=== PATIENT | male | born 1940 | race Caucasian/White ===

== ENCOUNTER → 2024-09-25 | Outpatient (CLI) | payer MEDICARE, SELFPAY ==
--- NOTE | 2024-09-25 17:06 | RAD_ITS ---
STUDY: X-RAY - LUMBAR SPINE REASON FOR EXAM: Male, 84 years old. LUMBAR RADIOLOPATHY HX PROSTATE CANCER TECHNIQUE: 3 view(s) of the lumbar spine were obtained. COMPARISON: None FINDINGS: Normal lumbar lordosis. There is no substantial scoliosis. Slight anterior subluxation L4-5. There is multilevel endplate spondylosis of the lumbar vertebrae. There is multi-level degenerative disc disease with multi-level disc space narrowing. Sclerosis left sacral ala. Bilateral total hip arthroplasties. The soft tissue structures are unremarkable. RAD/Lumbar Spine 2 or 3 Views IMPRESSION: Sclerosis left sacral ala. CT scan would be more sensitive to exclude osteoblastic/metastatic disease. Spondylolisthesis L4-5. Spondylosis and degenerative disc disease. Electronically Signed: Moustapha Messer MD at 0:00 EST ,
== END | disposition home or self-care (01) ==
PROVIDERS: PCP Internal Medicine; Referring Provider Anesthesiology; Visit Provider Anesthesiology
DX: M54.16 Radiculopathy, lumbar region (principal); Z85.46 Personal history of malignant neoplasm of prostate
CPT/HCPCS: 72100

== ENCOUNTER → 2024-10-01 | Outpatient (CLI) | payer MEDICARE, SELFPAY ==
--- NOTE | 2024-10-01 09:03 | MRI_ITS ---
EXAM: MR LUMBAR SPINE WITHOUT INTRAVENOUS CONTRAST CLINICAL INDICATION: RADICULOPATHY, HX PROSTATE CA TECHNIQUE: Multiplanar and multisequence MR images of the lumbar spine without intravenous contrast. COMPARISON: No relevant prior studies available. FINDINGS: VERTEBRAE: Multiple vertebral body lesions are seen within the spine on the patient accounts coordinator view mainly involving the T1, T2, T3, T4, T5, L1 and L2 vertebral bodies consistent with metastatic disease. Additional involvement of the pedicles of L1 and right pedicle of L2. No acute pathologic fracture. There is mild superior endplate deformity of the L2 vertebral body resulting in minimal loss in vertebral body height. No associated edema to suggest an acute fracture. SPINAL CORD: Normal. Normal position and signal intensity of the conus medullaris. SOFT TISSUES: Normal. DISCS/SPINAL CANAL/NEURAL FORAMINA: L1-L2: Moderate disc space narrowing. Broad-based disc protrusion and posterior ligamentous redundancy results in mild spinal stenosis. No significant narrowing of the neural foramina. L2-L3: Prominent disc space narrowing. Asymmetric disc osteophyte complex and ligamentous redundancy results in mild spinal stenosis and significant narrowing of the right lateral recess. Marked bilateral neural foraminal stenosis related to the disc changes and facet arthropathy. L3-L4: Prominent disc space narrowing. Broad-based disc osteophyte complex, marked ligamentous hypertrophy and facet arthropathy results in moderate to severe spinal stenosis and moderate to severe bilateral neural foraminal stenoses. L4-L5: Moderate disc space narrowing. Chronic inferior endplate deformity of L4. Broad-based disc protrusion, prominent ligamentous hypertrophy and facet arthropathy results in severe spinal stenosis and severe left and moderate right neural foraminal stenoses. L5-S1: Prominent disc space narrowing with Modic type II endplate changes. Left central disc herniation without significant joint on the spinal canal. Moderate narrowing of the neural foramina related to vertebral body and facet hypertrophy. MRI/Spine Lumbar (Routine) IMPRESSION: 1. 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 2. Significant spinal and neural foraminal stenoses related to advanced disc degeneration and facet arthropathy as described above. Electronically Signed: Alex Dye MD at 15:32 EST ,
== END | disposition home or self-care (01) ==
LOC: MRI 12:45
PROVIDERS: PCP Internal Medicine; Referring Provider Anesthesiology; Visit Provider Anesthesiology
DX: M54.16 Radiculopathy, lumbar region (principal); Z85.46 Personal history of malignant neoplasm of prostate
CPT/HCPCS: 72148